=== PATIENT | female | born 2000 | race Caucasian/White ===

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

== ENCOUNTER 2023-06-25 08:45 | Emergency (ER) | payer OTHER ==
[~2023-06-25] VITALS: Ht 157.5 cm; Wt 63.6 kg
[2023-06-25 08:48] VITALS: BP 114/67; PULSE 91; RESP 16; TEMP 98
[2023-06-25] MEDS ORDERED: DIPH25CA85 PO (08:48)
[2023-06-25] MEDS ORDERED: MOXI3DRO25 OD (09:20)
[2023-06-25] MEDS ORDERED: PRED-554 PO (09:20)
== END 2023-06-25 09:29 | disposition home or self-care (01) ==
LOC: EMS 08:45
DX: H10.11 Acute atopic conjunctivitis, right eye (principal); J45.909 Unspecified asthma, uncomplicated
CPT/HCPCS: 99283; Z7502

== ENCOUNTER 2023-07-25 16:10 | Emergency (ER) | payer OTHER ==
[~2023-07-25] VITALS: Ht 157.5 cm; Wt 61.4 kg
[~2023-07-25 16:10] MED LIST: DIPH25CA85 PO; MOXI3DRO25 OD; PRED-554 PO
[2023-07-25 16:18] VITALS: TEMP 98.2
[2023-07-25] MEDS ORDERED: LEVO1TAB89 PO (16:19)
[2023-07-25] MEDS ORDERED: DiphenhydrAMINE HCL 25 MG CAPSULE PO ONE (17:30)
[2023-07-25] MEDS ORDERED: PredniSONE 20 MG TABLET PO ONE (17:30)
[2023-07-25] MEDS ORDERED: DIPH25CA85 PO (18:56)
[2023-07-25] MEDS ORDERED: PRED-554 PO (18:56)
[2023-07-25 19:20] VITALS: BP 122/73; PULSE 91; RESP 18
== END 2023-07-25 19:56 | disposition home or self-care (01) ==
LOC: EMS 16:13
DX: T78.40XA Allergy, unspecified, initial encounter (principal); L50.9 Urticaria, unspecified; J45.909 Unspecified asthma, uncomplicated; X58.XXXA Exposure to other specified factors, initial encounter
CPT/HCPCS: 99283; J7512